=== PATIENT | male | born 1960 | race American Indian/Alaskan Native ===

== ENCOUNTER 2019-04-05 16:46 | Inpatient (IN) | payer BC ==
--- NOTE | 2019-04-05 17:08 | Event Note ---
ED Screening Note ED Screening Note: 59 yo male with hx of PTSD presnts with syncopal episode on Eliquis. Hx of CVA, HTN, DVT This initial assessment/diagnostic orders/clinical plan/treatment(s) is/are subject to change based on patients health status, clinical progression and re- assessment by fellow clinical providers in the ED. Further treatment and workup at subsequent clinical providers discretion. Patient/guardian urged not to elope from the ED as their condition may be serious if not clinically assessed and managed. Initial orders include: ekg labs
--- NOTE | 2019-04-05 18:21 | XRay Report ---
CHEST PA AND LATERAL VIEWS INDICATION: syncope. COMPARISON: None FINDINGS: Support devices: None Heart: Normal Lungs/Pleura: No acute pulmonary or pleural findings. IMPRESSION: 1. No significant abnormality. Signer Name: Angel Nava MD Signed: 04/05/2019 6:16 PM Workstation Name: [id number]
[2019-04-05 18:45] LABS: Eosinophils # (Auto) 0.1 K/mm3 (0.0-0.4); Eosinophils % (Auto) 2.6 % (0.0-4.3); Hematocrit 40.6 % (35.5-45.6); Hemoglobin 13.8 gm/dl (11.8-15.2); Lymphocytes # (Auto) 0.5 K/mm3 (1.2-5.4); Lymphocytes % (Auto) 13.4 % (13.4-35.0); Mean Corpuscular HGB Conc 34 % (32-34); Mean Corpuscular Volume 88 fl (84-94); Monocytes # (Auto) 0.3 K/mm3 (0.0-0.8); Monocytes % (Auto) 7.6 % (0.0-7.3); Platelet Count 248 K/mm3 (140-440); Red Cell Distribution Width 13.3 % (13.2-15.2)
[2019-04-05 19:03] LABS: Alanine Aminotransferase 11 units/L (7-56); Albumin 4.5 g/dL (3.9-5); BUN/Creatinine Ratio 16; Blood Urea Nitrogen 13 mg/dL (9-20); Calcium 8.9 mg/dL (8.4-10.2); Hemolysis Index 7
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
--- NOTE | 2019-04-06 00:32 | Cat Scan Report ---
CT HEAD WITHOUT CONTRAST INDICATION: syncope TECHNIQUE: Axial slices were obtained through the head. Coronal and sagittal reformatted images were obtained. COMPARISON: None available. FINDINGS: There is no intracranial hemorrhage or extra-axial fluid collection. Ventricles, basilar cisterns, an d sulci appear within normal limits for age. There is no mass lesion or midline shift. There is decre ased attenuation in the periventricular white matter most prominent in the right frontal region most characteristic of microangiopathic change. There is a lacunar infarct in the right basal ganglia. There is a focal area decreased attenuation in the anterior aspect of the right cingulate cortex Bone windows demonstrate no acute osseous abnormality. Paranasal sinuses and mastoid air cells appear clear. TECHNIQUE: All CT scans at this facility use dose modulation, iterative reconstruction, automated ex posure control, weight based dosing, when appropriate, to reduce radiation dose to as low as reasonab ly achievable. IMPRESSION: 1. No intracranial hemorrhage is seen. There is microangiopathic change in the periventricular white matter. There is a lacunar infarct in t he right basal ganglia. There is a focal area of decreased attenuation in the anterior aspect of the right cingulate cortex likely representing a lacunar infarct Signer Name: Kartik Cabral MD Signed: 04/06/2019 12:28 AM Workstation Name: [id number]
--- NOTE | 2019-04-06 00:48 | Cat Scan Report ---
CTA of the chest with 3D Reconstruction Indication: ,Chest pain, shortness of breath, syncope Technique: TECHNIQUE: Axial CT images were obtained through the chest after injection of 100 cc of Omnipaque 350 IV contrast. 3 plane MIP reconstructions were produced. All CT scans at this location are performed using CT dose reduction for ALARA by means of automated exposure control. COMPARISON: None Automatic exposure control was utilized in an attempt to reduce radiation dose. Findings: Pulmonary arteries: The main pulmonary artery and right and left pulmonary artery branches fill satis factorily with contrast. No pulmonary embolus is seen. Lungs: The lungs are clear. Mediastinum: Heart size is normal. No adenopathy is seen. Aorta: Normal in diameter. No dissection seen within limits of this exam. There is a nonobstructing 5 mm stone in the left kidney. Impression: No pulmonary embolus is seen Signer Name: Kartik Cabral MD Signed: 04/06/2019 12:44 AM Workstation Name: [id number]
[2019-04-06] MEDS ORDERED: ONDANSETRON 4 MG/2 ML INJ IV PRN (02:03)
[2019-04-06] MEDS: D5W/0.9% NACL 1,000 ML IV SCH (02:44)
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
[2019-04-06] MEDS ORDERED: REGADENOSON 0.4 MG/5 ML INJ IV ONE (09:00)
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
[2019-04-06] MEDS: APIXABAN 5 MG TAB PO SCH ×2 (12:48→22:35)
--- NOTE | 2019-04-06 14:50 | Event Note ---
Date: 04/06/19 Patient with syncope. I have seen and examined him. Cardiology recommends Neuro eval.
[2019-04-06] MEDS: LISINOPRIL 20 MG TAB PO SCH (16:07)
--- NOTE | 2019-04-06 16:08 | Progress Note ---
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 Objective - Vital Sign Vital Signs - 12hr 04/06/19 04/06/19 04/06/19 04:15 04:30 04:45 Pulse Rate 81 75 74 Respiratory 16 16 16 Rate Blood Pressure 137/84 142/89 150/85 O2 Sat by Pulse Oximetry 04/06/19 04/06/19 04/06/19 05:00 05:15 05:30 Pulse Rate 87 80 82 Respiratory 12 13 14 Rate Blood Pressure 149/93 146/97 126/79 O2 Sat by Pulse 98 Oximetry 04/06/19 04/06/19 04/06/19 05:45 06:00 06:15 Pulse Rate 87 79 76 Respiratory 10 L 15 12 Rate Blood Pressure 133/82 127/74 144/101 O2 Sat by Pulse 94 98 99 Oximetry 04/06/19 04/06/19 04/06/19 06:30 06:45 07:00 Pulse Rate 74 74 77 Respiratory 12 12 14 Rate Blood Pressure 126/77 129/82 146/99 O2 Sat by Pulse 98 99 98 Oximetry 04/06/19 04/06/19 04/06/19 07:10 07:20 07:30 Pulse Rate 80 80 71 Respiratory 14 13 13 Rate Blood Pressure 146/99 145/89 142/93 O2 Sat by Pulse 99 98 100 Oximetry 04/06/19 04/06/19 04/06/19 07:40 07:50 08:00 Pulse Rate 77 74 74 Respiratory 13 14 12 Rate Blood Pressure 142/93 131/85 131/90 O2 Sat by Pulse 99 99 99 Oximetry 04/06/19 04/06/19 04/06/19 08:10 08:20 08:30 Pulse Rate 76 88 72 Respiratory 14 16 12 Rate Blood Pressure 131/90 130/79 143/97 O2 Sat by Pulse 99 Oximetry 04/06/19 04/06/19 04/06/19 10:21 10:39 10:41 Pulse Rate Respiratory Rate Blood Pressure 160/103 155/96 145/90 O2 Sat by Pulse Oximetry 04/06/19 04/06/19 04/06/19 10:43 10:45 12:32 Pulse Rate 77 Respiratory Rate Blood Pressure 132/75 130/84 146/101 O2 Sat by Pulse 99 Oximetry 04/06/19 04/06/19 04/06/19 13:21 14:46 14:49 Pulse Rate 76 Respiratory 20 Rate Blood Pressure O2 Sat by Pulse 96 98 Oximetry - Laboratory Findings CBC and BMP: 04/05/19 18:20 04/05/19 18:20 Abnormal Lab Findings: Abnormal Labs 04/05/19 04/05/19 04/05/19 17:06 18:20 18:20 WBC 4.1 L [place] % (Auto) 7.6 H Lymph # 0.5 L Seg Neutrophils % 75.4 H Glucose 111 H POC Glucose 152 H
[2019-04-06] MEDS: ACETAMINOPHEN 325 MG TAB PO PRN ×2 (17:59→22:34)
--- NOTE | 2019-04-06 18:32 | Treadmill Report ---
THALLIUM STRESS TEST LEFT VENTRICLE: Left ventricular chamber size is within normal spread. Perfusion study demonstrates mild diaphragmatic attenuation artifact, otherwise homogeneous uptake of the tracer in all segments, no significant defects identified. Gated analysis demonstrates normal left ventricular systolic function, ejection fraction 66%. CONCLUSION: Normal myocardial perfusion study. JOB# [id number] CA/NTS
[2019-04-07] MEDS: D5W/0.9% NACL 1,000 ML IV SCH (01:17)
--- NOTE | 2019-04-07 11:08 | Progress Note ---
Assessment and Plan Assessment and plan: Syncope Unclear etiology Patient has history of head trauma when he was in For EEG in am Telemetry Cardiology consulted. He was seen by Cardiology and Neuro eval recommended patient evaluated by Neurologist Hyperglycemia Patient denies any history of diabetes Check A1c Chest pain History is atypical EKG reviewed Troponin x2 in the normal range Check echocardiogram History of pulmonary embolism Continue Eliquis Hyperlipidemia Continue statin History Interval history: Syncope Chest pain Hospitalist Physical - Physical exam Narrative exam: GEN: Not in acute distress, lying in bed HEENT: Normocephalic, atraumatic, Neck: supple, No JVD Lungs: Clear to auscultation, no wheeze, heart;S1 and S2 reg, no murmurs, rubs or gallop Abd:soft, non tender , non distended, normal bowel sounds Ext: No edema, no clubbing, no cyanosis Neuro: Awake,alert, oriented X 3, no focal neurological signs - Constitutional Vitals: Temp Pulse Resp BP Pulse Ox 100.4 F H 96 H 18 142/93 99 04/07/19 07:40 04/07/19 10:40 04/07/19 07:40 04/07/19 07:40 04/07/19 04:56 General appearance: Present: no acute distress Results - Labs CBC & Chem 7: 04/05/19 18:20 04/05/19 18:20 Labs: Laboratory Last Values WBC 4.1 K/mm3 (4.5-11.0) L 04/05/19 18:20 RBC 4.60 M/mm3 (3.65-5.03) 04/05/19 18:20 Hgb 13.8 gm/dl (11.8-15.2) 04/05/19 18:20 Hct 40.6 % (35.5-45.6) 04/05/19 18:20 MCV 88 fl (84-94) 04/05/19 18:20 MCH 30 pg (28-32) 04/05/19 18:20 MCHC 34 % (32-34) 04/05/19 18:20 RDW 13.3 % (13.2-15.2) 04/05/19 18:20 Plt Count 248 K/mm3 (140-440) 04/05/19 18:20 Lymph % (Auto) 13.4 % (13.4-35.0) 04/05/19 18:20 [place] % (Auto) 7.6 % (0.0-7.3) H 04/05/19 18:20 Eos % (Auto) 2.6 % (0.0-4.3) 04/05/19 18:20 Baso % (Auto) 1.0 % (0.0-1.8) 04/05/19 18:20 Lymph # 0.5 K/mm3 (1.2-5.4) L 04/05/19 18:20 [place] # 0.3 K/mm3 (0.0-0.8) 04/05/19 18:20 Eos # 0.1 K/mm3 (0.0-0.4) 04/05/19 18:20 Baso # 0.0 K/mm3 (0.0-0.1) 04/05/19 18:20 Seg Neutrophils % 75.4 % (40.0-70.0) H 04/05/19 18:20 Seg Neutrophils # 3.1 K/mm3 (1.8-7.7) 04/05/19 18:20 Sodium 142 mmol/L (137-145) 04/05/19 18:20 Potassium 4.0 mmol/L (3.6-5.0) 04/05/19 18:20 Chloride 102.7 mmol/L (98-107) 04/05/19 18:20 Carbon Dioxide 28 mmol/L (22-30) 04/05/19 18:20 Anion Gap 15 mmol/L 04/05/19 18:20 BUN 13 mg/dL (9-20) 04/05/19 18:20 Creatinine 0.8 mg/dL (0.8-1.5) 04/05/19 18:20 Estimated GFR > 60 ml/min 04/05/19 18:20 BUN/Creatinine Ratio 16 % 04/05/19 18:20 Glucose 111 mg/dL (75-100) H 04/05/19 18:20 POC Glucose 152 (70-105) H 04/05/19 17:06 Hemoglobin A1c 5.1 % (4-6) 04/06/19 05:00 Calcium 8.9 mg/dL (8.4-10.2) 04/05/19 18:20 Total Bilirubin 0.40 mg/dL (0.1-1.2) 04/05/19 18:20 AST 14 units/L (5-40) 04/05/19 18:20 ALT 11 units/L (7-56) 04/05/19 18:20 Alkaline Phosphatase 72 units/L (35-129) 04/05/19 18:20 Troponin T < 0.010 ng/mL (0.00-0.029) 04/06/19 01:22 NT-Pro-B Natriuret Pep 8.10 pg/mL (0-900) 04/05/19 18:20 Total Protein 6.9 g/dL (6.3-8.2) 04/05/19 18:20 Albumin 4.5 g/dL (3.9-5) 04/05/19 18:20 Albumin/Globulin Ratio 1.9 % 04/05/19 18:20 Active Medications - Current Medications Current Medications: Generic Name Dose Route Start Last Admin Trade Name Freq PRN Reason Stop Dose Admin Acetaminophen 650 mg 04/06/19 02:03 04/06/19 22:34 Tylenol PO 650 mg Q4H PRN Administration Pain MILD(1-3)/Fever >100.5/CHICAS Apixaban 5 mg 04/06/19 10:00 04/06/19 22:35 Eliquis PO 5 mg BID ALEJO Administration Protocol Atorvastatin Calcium 40 mg 04/06/19 22:00 04/06/19 22:35 Lipitor PO 40 mg QHS ALEJO Administration Dextrose/Sodium Chloride 1,000 mls @ 75 mls/hr 04/06/19 03:00 04/07/19 01:17 D5ns IV 75 mls/hr DIRECT ALEJO Administration Lisinopril 20 mg 04/06/19 16:00 04/06/19 16:07 Zestril PO 20 mg DAILY ALEJO Administration Ondansetron HCl 4 mg 04/06/19 02:03 Zofran IV Q8H PRN Nausea And Vomiting Sodium Chloride 10 ml 04/06/19 10:00 04/07/19 08:58 Sodium Chloride Flush Syringe 10 Ml IV Not Given BID ALEJO Sodium Chloride 10 ml 04/06/19 02:03 Sodium Chloride Flush Syringe 10 Ml IV PRN PRN LINE FLUSH
[2019-04-07] MEDS: APIXABAN 5 MG TAB PO SCH ×2 (11:19→21:49)
[2019-04-07] MEDS: LISINOPRIL 20 MG TAB PO SCH (11:19)
[2019-04-07] MEDS ORDERED: FLU VACC QUAD 2019-20 (3 YR UP)/PF 60 MCG/0.5 ML SYRINGE IM ONE (12:51)
--- NOTE | 2019-04-07 14:53 | Progress Note ---
Assessment and Plan - Patient Problems (1) Syncope Current Visit: Yes Status: Acute Plan to address problem: Syncope appears vasovagal by history, EKG is normal, Lexiscan thallium stress test is normal, ejection fraction is normal at 66% on gated SPECT study. No further cardiac workup is indicated. The patient's head CT scan reports evidence of lacunar infarcts, I would recommend a neurological evaluation in the setting of unexplained syncope. We will get an echocardiogram for left ventricular function assessment, and assessment of cardioembolic source. Subjective Date of service: 04/07/19 Interval history: Patient has no cardiac complaints, looks and feels well. Objective Vital Signs Temp Pulse Resp Resp BP BP Pulse Ox 04/07/19 10:40 96 H 04/07/19 07:40 100.4 F H 18 142/93 04/07/19 05:19 98 H 04/07/19 04:56 98 F 98 H 20 141/68 99 04/07/19 02:00 20 04/06/19 23:34 18 04/06/19 23:08 98.0 F 75 18 143/94 97 04/06/19 22:34 20 04/06/19 22:00 75 04/06/19 19:52 98.9 F 83 18 125/73 95 04/06/19 18:59 20 04/06/19 17:59 20 04/06/19 16:27 98.0 F 78 18 153/95 99 - Physical Examination General: No Apparent Distress HEENT: Positive: PERRL Neck: Positive: neck supple Cardiac: Positive: Reg Rate and Rhythm Lungs: Positive: Decreased Breath Sounds Neuro: Positive: Grossly Intact Abdomen: Positive: Soft Skin: Positive: Clear Extremities: Absent: edema
[2019-04-07] MEDS: ACETAMINOPHEN 325 MG TAB PO PRN (21:49)
--- NOTE | 2019-04-07 22:49 | Event Note ---
Notified by nurse that patient has a fever Check blood cultures, urinalysis, start IV Rocephin
[2019-04-07] MEDS: cefTRIAXone/NS 1 GM/50 ML 1 GM/50 ML BAG IV SCH (23:30)
[2019-04-08] MEDS: D5W/0.9% NACL 1,000 ML IV SCH (03:51)
[2019-04-08] MEDS: ACETAMINOPHEN 325 MG TAB PO PRN (06:53)
[2019-04-08 08:06] LABS: Bilirubin,Urine NEG (Negative); Blood,Urine NEG (Negative); Color,Urine Yellow (Yellow); Mucus,Urine FEW /HPF; Protein,Urine <15 mg/dL mg/dL (Negative); Urobilinogen,Urine < 2.0 mg/dL (<2.0)
[2019-04-08] MEDS: APIXABAN 5 MG TAB PO SCH ×2 (10:28→22:11)
[2019-04-08] MEDS: LISINOPRIL 20 MG TAB PO SCH (10:28)
--- NOTE | 2019-04-08 12:17 | Consultation ---
History of Present Illness - Reason for Consult Consult date: 04/08/19 Reason for consult: psychiatric assessment - Chief Complaint Chief complaint: Syncope and chest pain - History of Present Psychiatric Illness Mr. Bills is a 59-year-old -[place] male, the patient received sitting on the side of his bed he is alert oriented x3 he is dressed appropriate for the occasion, he maintains eye contact. Patient reports that he fell out of a [employer] bus and was injured. The patient reported he has a history of PTSD and was taking Latuda but stopped taking it because he is allergic to the medication the patient states that [facility]. The patient reports that he was in the [employer] and that is where he acquired his PTSD. The patient denies suicidal or homicidal ideation he states, "I am just angry that they are not treating me right here". The patient denies visual or auditory hallucinations. He reports, "I am not depressed I am just hungry". The patient does report that he is not sleeping well but maintained that his appetite is good. The patient is requesting medication for his anxiety and sleep. The patient report that at this time he is not having any other problems just anxiety and problems sleeping. The patient reports that the [facility] is handling [facility] diagnosis. PAST PSYCHIATRIC HISTORY: Diagnoses: PTSD Suicide attempts or Self-harm behavior: Denies [facility] Sub[facility] Abuse history: Denies Previous psychiatric medications tried: Latuda Outpatient treatment: Yes PAST MEDICAL HISTORY: Strokes, high blood pressure Family Psychiatric History None reported or documented SOCIAL HISTORY Marital Status: Living Arrangements: [facility] Employment Status: Disabled Access to guns/weapons: Denies Education: College History of Abuse: Denies Legal History: Denies ROS: Constitutional: Negative for weight loss ENT: Negative for stridor Respiratory: Negative for cough or hemoptysis All other systems reviewed and are negative MENTAL STATUS General Appearance and Behavior: age appropriate, good eye contact, cooperative with questioning and polite Cooperation: Cooperative Psychomotor Behavior: within normal limits Mood: "angry" Affect and affective range: Congruent with stated mood Thought Process: Fluent/Logical and Goal-directed Thought Content: Within reality Speech: Normal volume and Regular rate and rhythm Intellectual Functioning Average Suicidal Ideation: Denies SI Homicidal Ideation: Denies HI Impulse Control: intact Insight and Judgment: normal insight and judgment Memory: Normal Attention: Normal Orientation: alert and oriented RECOMMENDATIONS MEDICATIONS: Start BuSpar 7.5 mg twice daily Start trazodone 50 mg nightly Risks, benefits and alternatives of medications discussed with the patient, questions answered and consent obtained from patient. PSYCHOTHERAPY: Supportive psychotherapy provided MEDICAL: Per primary team DELIRIUM PRECAUTIONS: Please re-orient patient frequently, keep lights on during the day, and minimize benzodiazepines and opiates as these medications could worsen patient's confusion. 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: DISPOSITION: Per primary team; no indication for acute inpatient psychiatric hospitalization at this time, will follow until discharge LEGAL STATUS: FOLLOW-UP: Will follow Medications and Allergies Allergies Allergy/AdvReac Type Severity Reaction Status Date / Time lurasidone [From Latuda] AdvReac Hives Verified 04/06/19 02:12 [email or web address] [From Chantix] AdvReac Hives Verified 04/06/19 02:12 Home Medications Medication Instructions Recorded Confirmed Last Taken Type Apixaban [Eliquis] 5 mg PO QDAY 04/06/19 04/06/19 Unknown History AtorvaSTATin [Lipitor] 40 mg PO QHS 04/06/19 04/06/19 Unknown History lisinopriL [Zestril TAB] 20 mg PO DAILY 04/06/19 04/06/19 1 Day Ago History ~04/05/19 Active Meds: Active Medications Acetaminophen (Tylenol) 650 mg PO Q4H PRN PRN Reason: Pain MILD(1-3)/Fever >100.5/CHICAS Last Admin: 04/08/19 06:53 Dose: 650 mg Documented by: Apixaban (Eliquis) 5 mg PO BID [facility]; Protocol Last Admin: 04/08/19 10:28 Dose: 5 mg Documented by: Atorvastatin Calcium (Lipitor) 40 mg PO QHS [facility] Last Admin: 04/07/19 21:49 Dose: 40 mg Documented by: Dextrose/Sodium Chloride (D5ns) 1,000 mls @ 75 mls/hr IV DIRECT [facility] Last Admin: 04/08/19 03:51 Dose: 75 mls/hr Documented by: Ceftriaxone Sodium (Rocephin/Ns 1 Gm/50 Ml) 1 gm in 50 mls @ 100 mls/hr IV Q24HR@2200 [facility]; Protocol Last Admin: 04/07/19 23:30 Dose: 100 mls/hr Documented by: Lisinopril (Zestril) 20 mg PO DAILY [facility] Last Admin: 04/08/19 10:28 Dose: 20 mg Documented by: Ondansetron HCl (Zofran) 4 mg IV Q8H PRN PRN Reason: Nausea And Vomiting Sodium Chloride (Sodium Chloride Flush Syringe 10 Ml) 10 ml IV BID [facility] Last Admin: 04/08/19 10:28 Dose: 10 ml Documented by: Sodium Chloride (Sodium Chloride Flush Syringe 10 Ml) 10 ml IV PRN PRN PRN Reason: LINE FLUSH Mental Status Exam - Vital signs Last Vital Signs Temp 100.5 F H 04/08/19 03:32 Pulse 84 04/08/19 10:00 Resp 18 04/08/19 03:32 BP 145/99 04/08/19 03:32 Pulse Ox 98 04/08/19 03:32 Results Result Diagrams: 04/05/19 18:20 04/05/19 18:20 All other labs normal.
--- NOTE | 2019-04-08 13:30 | Progress Note ---
Subjective Date of service: 04/08/19 Interval history: recommend keepra 500 mg bid for seizures order entered spoke to Dr. Grayson Objective - Vital Sign Vital Signs - 12hr 04/08/19 04/08/19 03:32 10:00 Temperature 100.5 F H Pulse Rate 111 H 84 Respiratory 18 Rate Blood Pressure 145/99 O2 Sat by Pulse 98 Oximetry - Laboratory Findings CBC and BMP: 04/05/19 18:20 04/05/19 18:20 Abnormal Lab Findings: Abnormal Labs 04/05/19 04/05/19 04/05/19 17:06 18:20 18:20 WBC 4.1 L [place] % (Auto) 7.6 H Lymph # 0.5 L Seg Neutrophils % 75.4 H Glucose 111 H POC Glucose 152 H
--- NOTE | 2019-04-08 15:57 | Consultation ---
History of Present Illness - Reason for Consult Consult date: 04/08/19 - History of Present Illness 59-year-old male past medical history DVT, PE [facility] due to syncope and chest pain. Noted for admission he was in his usual state of health, however he began to feel dizzy and drowsy. While on the bus had a syncopal episode, and came to without medical intervention.. Following this he began having substernal chest pain and shortness of breath, with nausea and vomiting. He also notes diaphoresis at that time. After being admitted he developed high fevers to 103.4. He has a mild leukopenia with a white count of 4. he notes a headache and neck pain, though denies any decreased ROM of the neck. He is currently receiving ceftriaxone. Blood cultures are currently pending Imaging personally reviewed: Chest CTA: No pulmonary embolism, lungs clear. Review of Systems: Bold if positive, otherwise negative General: fevers, chills, rigors HEENT: visual disturbance, diplopia, eye pain Respiratory: cough, sputum, hemoptysis, shortness of breath Cardiovascular: chest pain, syncope Gastrointestinal: nausea, vomiting, diarrhea, abdominal pain Genitourinary: dysuria, hematuria, flank pain Musculoskeletal: neck pain, back pain, joint pain, edema Neurologic: headaches, seizures Hematologic: easy bruising or bleeding Endocrine: night sweats, acute weight loss Skin: rash, jaundice, redness Psychiatric: suicidal, homicidal ideation Past History Past Medical History: DVT, pulmonary embolism, other (PTSD) Past Surgical History: No surgical history Social history: no significant social history Family history: no significant family history Medications and Allergies Allergies Allergy/AdvReac Type Severity Reaction Status Date / Time lurasidone [From Latuda] AdvReac Hives Verified 04/06/19 02:12 [email or web address] [From Chantix] AdvReac Hives Verified 04/06/19 02:12 Home Medications Medication Instructions Recorded Confirmed Last Taken Type Apixaban [Eliquis] 5 mg PO QDAY 04/06/19 04/06/19 Unknown History AtorvaSTATin [Lipitor] 40 mg PO QHS 04/06/19 04/06/19 Unknown History lisinopriL [Zestril TAB] 20 mg PO DAILY 04/06/19 04/06/19 1 Day Ago History ~04/05/19 Active Meds: Active Medications Acetaminophen (Tylenol) 650 mg PO Q4H PRN PRN Reason: Pain MILD(1-3)/Fever >100.5/CHICAS Last Admin: 04/08/19 06:53 Dose: 650 mg Documented by: Apixaban (Eliquis) 5 mg PO BID [facility]; Protocol Last Admin: 04/08/19 10:28 Dose: 5 mg Documented by: Atorvastatin Calcium (Lipitor) 40 mg PO QHS [facility] Last Admin: 04/07/19 21:49 Dose: 40 mg Documented by: Buspirone HCl (Buspar) 7.5 mg PO BID [facility] Dextrose/Sodium Chloride (D5ns) 1,000 mls @ 75 mls/hr IV DIRECT [facility] Last Admin: 04/08/19 03:51 Dose: 75 mls/hr Documented by: Ceftriaxone Sodium (Rocephin/Ns 1 Gm/50 Ml) 1 gm in 50 mls @ 100 mls/hr IV Q24HR@2200 [facility]; Protocol Last Admin: 04/07/19 23:30 Dose: 100 mls/hr Documented by: Levetiracetam (Keppra) 500 mg PO BID [facility] Lisinopril (Zestril) 20 mg PO DAILY [facility] Last Admin: 04/08/19 10:28 Dose: 20 mg Documented by: Ondansetron HCl (Zofran) 4 mg IV Q8H PRN PRN Reason: Nausea And Vomiting Sodium Chloride (Sodium Chloride Flush Syringe 10 Ml) 10 ml IV BID [facility] Last Admin: 04/08/19 10:28 Dose: 10 ml Documented by: Sodium Chloride (Sodium Chloride Flush Syringe 10 Ml) 10 ml IV PRN PRN PRN Reason: LINE FLUSH Trazodone HCl (Desyrel) 50 mg PO QHS [facility] Physical Examination - Physical Exam Narrative exam: Physical Exam: Constitutional: Alert, cooperative. No acute distress Head, Ears, Nose: Normocephalic, atraumatic. External ears, nose normal Eyes: Conjunctivae/corneas clear. No icterus. No ptosis. Neck: Supple, no meningeal signs Oral: dentition fair, no thrush Cardiovascular: S1, S2 normal. Respiratory: Good air entry, clear to auscultation bilaterally GI: Soft, non-tender; bowel sounds normal. No peritoneal signs. Musculoskeletal: No pedal edema, no cyanosis. Skin: No rash or abscess Hem/Lymphatic: No palpable cervical or supraclavicular nodes. No lymphangitis Psych: Mood ok. Affect normal Neurological: Awake, alert, oriented. No gross abnormality - Constitutional Vitals: Vital Signs Temp Pulse Resp BP Pulse Ox 100.5 F H 84 18 145/99 98 04/08/19 03:32 04/08/19 10:00 04/08/19 03:32 04/08/19 03:32 04/08/19 03:32 Temperature -Last 24 Hours Temperature 100.5 F Temperature 100.9 F Temperature 103.4 F Results - Labs CBC & Chem 7: 04/05/19 18:20 04/05/19 18:20 Assessment and Plan Cultures: 04/07/2019 blood cultures (a.m.): Pending 04/07/2019 blood cultures (p.m.): Pending A&P: 59-year-old man past medical history DVT, PE admitted with chest pain and syncope. Found to have high fevers on admission. #Fevers: Unclear etiology as yet. Recommend evaluating for influenza. Would consider obtaining LP to rule out a viral meningitis picture. Can continue ceftriaxone for now, though don't expect a long course. Recommendations: -Ordered rapid flu and flu PCR. -Start empiric Tamiflu 75 mg every 12 hours, stop if flu negative. - ordered procalcitonin for the AM. Thank you for the consult, will continue to follow MD Kira [facility] M: [phone] O: [phone] F: [phone]
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
--- NOTE | 2019-04-08 17:17 | Progress Note ---
Assessment and Plan - Patient Problems (1) Syncope Current Visit: Yes Status: Acute Plan to address problem: Syncope appears vasovagal by history, EKG is normal, Lexiscan thallium stress test is normal, ejection fraction is normal at 66% on gated SPECT study. No further cardiac workup is indicated. The patient's head CT scan reports evidence of lacunar infarcts, I would recommend a neurological evaluation in the setting of unexplained syncope. Patient refused echocardiogram. Cardiac status is stable and asymptomatic, we will sign off on formal on a when necessary basis. Subjective Date of service: 04/08/19 Interval history: Patient refuses further cardiac testing, including an echocardiogram that was recommended for cardioembolic source. Objective Vital Signs Temp Pulse Resp BP Pulse Ox 04/08/19 10:00 84 04/08/19 03:32 100.5 F H 111 H 18 145/99 98 04/08/19 01:04 100.9 F H 84 18 108/59 95 04/07/19 22:00 87 04/07/19 19:24 103.4 F H 83 18 133/77 97 - Physical Examination General: No Apparent Distress HEENT: Positive: PERRL Neck: Positive: neck supple Cardiac: Positive: Reg Rate and Rhythm Lungs: Positive: Decreased Breath Sounds Neuro: Positive: Grossly Intact Abdomen: Positive: Soft Skin: Positive: Clear Extremities: Absent: edema
[2019-04-08] MEDS: busPIRone 5 MG TAB PO SCH (22:10)
[2019-04-08] MEDS: cefTRIAXone/NS 1 GM/50 ML 1 GM/50 ML BAG IV SCH (22:10)
[2019-04-08] MEDS: traZODone 50 MG TAB PO SCH (22:10)
[2019-04-08] MEDS: OSELTAMIVIR 75 MG CAP PO SCH (22:11)
[2019-04-08] MEDS: levETIRAcetam 500 MG TAB PO SCH (22:11)
[2019-04-09 05:25] LABS: Hematocrit 38.3 % (35.5-45.6); Hemoglobin 13.3 gm/dl (11.8-15.2); Mean Corpuscular HGB Conc 35 % (32-34); Mean Corpuscular Volume 87 fl (84-94); Platelet Count 202 K/mm3 (140-440); Red Blood Count 4.42 M/mm3 (3.65-5.03); Red Cell Distribution Width 13.2 % (13.2-15.2)
[2019-04-09 05:44] LABS: BUN/Creatinine Ratio 13; Blood Urea Nitrogen 10 mg/dL (9-20); Calcium 8.3 mg/dL (8.4-10.2); Hemolysis Index 2
[2019-04-09] MEDS: D5W/0.9% NACL 1,000 ML IV SCH ×2 (10:07→21:39)
[2019-04-09] MEDS: OSELTAMIVIR 75 MG CAP PO SCH ×2 (10:07→21:33)
[2019-04-09] MEDS: levETIRAcetam 500 MG TAB PO SCH ×2 (10:08→21:33)
[2019-04-09] MEDS: APIXABAN 5 MG TAB PO SCH ×2 (10:08→21:33)
[2019-04-09] MEDS: busPIRone 5 MG TAB PO SCH ×2 (10:09→21:33)
[2019-04-09] MEDS: LISINOPRIL 20 MG TAB PO SCH (10:09)
[2019-04-09 10:47] LABS: Color,Urine Yellow (Yellow)
[2019-04-09 10:48] LABS: Bilirubin,Urine Negative (Negative); Blood,Urine Negative (Negative); Protein,Urine <15 mg/dL mg/dL (Negative)
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
[2019-04-09] MEDS: ACETAMINOPHEN 325 MG TAB PO PRN (14:29)
--- NOTE | 2019-04-09 16:55 | Progress Note ---
Assessment and Plan Cultures: 04/07/2019 blood cultures (a.m.): Pending 04/07/2019 blood cultures (p.m.): Pending Flu negative 217 urine cultures: Pending A&P: 59-year-old man past medical history DVT, PE admitted with chest pain and syncope. Found to have high fevers on admission. #Fevers: Unclear etiology as yet. Given negative procalcitonin, believe it is most likely due to a viral upper respiratory tract infection Recommendations: Stop Tamiflu Stop ceftriaxone No need for further investigation at this time Thank you for the consult, will sign off, please call with questions Carmen Dupree MD [facility] ([facility]) M: [phone] O: [phone] F: [phone] Subjective Date of service: 04/02/19 Interval history: Afebrile now, no new complaints. Headache improved. Objective - Exam Narrative Exam: Physical Exam: Constitutional: Alert, cooperative. No acute distress Head, Ears, Nose: Normocephalic, atraumatic. External ears, nose normal Neck: Supple, no meningeal signs Oral: dentition fair, no thrush Cardiovascular: S1, S2 normal. Respiratory: Good air entry, clear to auscultation bilaterally GI: Soft, non-tender; bowel sounds normal. No peritoneal signs. Musculoskeletal: No pedal edema, no cyanosis. Skin: No rash or abscess Hem/Lymphatic: No palpable cervical or supraclavicular nodes. No lymphangitis Psych: Mood ok. Affect normal Neurological: Awake, alert, oriented. No gross abnormality - Constitutional Vitals: Vital Signs Temp Pulse Resp BP Pulse Ox 98.4 F 108 H 20 138/89 98 04/09/19 08:20 04/09/19 11:00 04/09/19 14:29 04/09/19 10:09 04/09/19 11:00 Temperature -Last 24 Hours Temperature 98.4 F Temperature 98.0 F Temperature 98.3 F Temperature 98.3 F Temperature 97.9 F - Labs CBC & Chem 7: 04/09/19 04:28 04/09/19 04:28 Labs: Abnormal lab results 04/09/19 04/09/19 Range/Units 04:28 04:28 WBC 3.5 L (4.5-11.0) K/mm3 MCHC 35 H (32-34) % Calcium 8.3 L (8.4-10.2) mg/dL
--- NOTE | 2019-04-09 18:33 | Progress Note ---
Assessment and Plan - Patient Problems (1) Seizure Current Visit: Yes Status: Acute Plan to address problem: Patient with active seizure disorder. Plan will be to discontinue with Keppra follow-up with outpatient neurology. (2) Chest pain Current Visit: Yes Status: Acute Plan to address problem: Patient remains chest pain-free. Patient had negative cardiac isoenzymes. Patient refused echocardiogram to rule out embolic source. Does not appear to be cardiac origin at all with his description. (3) Hyperglycemia Current Visit: Yes Status: Acute Plan to address problem: Patient with history of diabetes Accu-Chek has remained optimally controlled. Will obtain A1c. A1c 5.1. Nondiabetic range. We will continue to follow. (4) Syncope Current Visit: Yes Status: Acute Plan to address problem: Patient with near syncope no true syncope most likely secondary to seizure disorder treat underlying etiology. (5) History of pulmonary embolism Current Visit: Yes Status: Chronic Plan to address problem: Restart patient on Eliquis tolerated well. (6) Hyperlipidemia Current Visit: Yes Status: Chronic Qualifiers: Hyperlipidemia type: mixed hyperlipidemia Qualified Code(s): E78.2 - Mixed hyperlipidemia Plan to address problem: We will continue statin goal LDL less than 70. History Interval history: Patient this a.m. chooses concerns over recent CT scan of head and follow-up by staff neurologist. Patient clearly has some underlying psychiatric etiology. Patient however now is very understanding. Attempts to make sense of his disease state. Patient states he has not had any recent seizure now. Feels improved. Patient would like physical therapy. That is 1 of his main issues at this time. No further episodes of syncope. Hospitalist Physical - Constitutional Vitals: Temp Pulse Resp BP Pulse Ox 98.4 F 108 H 20 138/89 98 04/09/19 08:20 04/09/19 11:00 04/09/19 14:29 04/09/19 10:09 04/09/19 11:00 General appearance: Present: no acute distress - EENT Eyes: Present: PERRL, EOM intact ENT: hearing intact, clear oral mucosa, dentition normal - Neck Neck: Present: supple, normal ROM - Respiratory Respiratory: bilateral: CTA - Cardiovascular Rhythm: regular - Extremities Extremities: no ischemia, pulses intact, pulses symmetrical, No edema, normal temperature, normal color Peripheral Pulses: within normal limits - Abdominal General gastrointestinal: soft, non-tender, non-distended, normal bowel sounds - Integumentary Integumentary: Present: clear, warm, dry - Psychiatric Psychiatric: appropriate mood/affect, intact judgment & insight (Poor insight into disease.), other (Poor judgment.) - Neurologic Neurologic: CNII-XII intact Results - Labs CBC & Chem 7: 04/09/19 04:28 04/09/19 04:28 Labs: Laboratory Last Values WBC 3.5 K/mm3 (4.5-11.0) L 04/09/19 04:28 RBC 4.42 M/mm3 (3.65-5.03) 04/09/19 04:28 Hgb 13.3 gm/dl (11.8-15.2) 04/09/19 04:28 Hct 38.3 % (35.5-45.6) 04/09/19 04:28 MCV 87 fl (84-94) 04/09/19 04:28 MCH 30 pg (28-32) 04/09/19 04:28 MCHC 35 % (32-34) H 04/09/19 04:28 RDW 13.2 % (13.2-15.2) 04/09/19 04:28 Plt Count 202 K/mm3 (140-440) 04/09/19 04:28 Lymph % (Auto) 13.4 % (13.4-35.0) 04/05/19 18:20 [place] % (Auto) 7.6 % (0.0-7.3) H 04/05/19 18:20 Eos % (Auto) 2.6 % (0.0-4.3) 04/05/19 18:20 Baso % (Auto) 1.0 % (0.0-1.8) 04/05/19 18:20 Lymph # 0.5 K/mm3 (1.2-5.4) L 04/05/19 18:20 [place] # 0.3 K/mm3 (0.0-0.8) 04/05/19 18:20 Eos # 0.1 K/mm3 (0.0-0.4) 04/05/19 18:20 Baso # 0.0 K/mm3 (0.0-0.1) 04/05/19 18:20 Seg Neutrophils % 75.4 % (40.0-70.0) H 04/05/19 18:20 Seg Neutrophils # 3.1 K/mm3 (1.8-7.7) 04/05/19 18:20 Sodium 143 mmol/L (137-145) 04/09/19 04:28 Potassium 3.9 mmol/L (3.6-5.0) 04/09/19 04:28 Chloride 104.8 mmol/L (98-107) 04/09/19 04:28 Carbon Dioxide 23 mmol/L (22-30) 04/09/19 04:28 Anion Gap 19 mmol/L 04/09/19 04:28 BUN 10 mg/dL (9-20) 04/09/19 04:28 Creatinine 0.8 mg/dL (0.8-1.5) 04/09/19 04:28 Estimated GFR > 60 ml/min 04/09/19 04:28 BUN/Creatinine Ratio 13 % 04/09/19 04:28 Glucose 97 mg/dL (75-100) 04/09/19 04:28 POC Glucose 152 (70-105) H 04/05/19 17:06 Hemoglobin A1c 5.1 % (4-6) 04/06/19 05:00 Calcium 8.3 mg/dL (8.4-10.2) L 04/09/19 04:28 Total Bilirubin 0.40 mg/dL (0.1-1.2) 04/05/19 18:20 AST 14 units/L (5-40) 04/05/19 18:20 ALT 11 units/L (7-56) 04/05/19 18:20 Alkaline Phosphatase 72 units/L (35-129) 04/05/19 18:20 Troponin T < 0.010 ng/mL (0.00-0.029) 04/06/19 01:22 NT-Pro-B Natriuret Pep 8.10 pg/mL (0-900) 04/05/19 18:20 Total Protein 6.9 g/dL (6.3-8.2) 04/05/19 18:20 Albumin 4.5 g/dL (3.9-5) 04/05/19 18:20 Albumin/Globulin Ratio 1.9 % 04/05/19 18:20 Procalcitonin < 0.05 ng/mL (<0.15) 04/09/19 04:28 Urine Color Yellow (Yellow) 04/09/19 09:57 Urine Turbidity Clear (Clear) 04/09/19 09:57 Urine pH 6.0 (5.0-7.0) 04/09/19 09:57 Ur Specific [place] 1.010 (1.003-1.030) 04/09/19 09:57 Urine Protein <15 mg/dl mg/dL (Negative) 04/09/19 09:57 Urine Glucose (UA) Negative mg/dL (Negative) 04/09/19 09:57 Urine Ketones Negative mg/dL (Negative) 04/09/19 09:57 Urine Blood Negative (Negative) 04/09/19 09:57 Urine Nitrite Negative (Negative) 04/09/19 09:57 Ur Reducing Substances Not Reportable 04/09/19 09:57 Urine Bilirubin Negative (Negative) 04/09/19 09:57 Urine Ictotest Not Reportable 04/09/19 09:57 Urine Urobilinogen 2.0 mg/dL (<2.0) 04/09/19 09:57 Ur Leukocyte Esterase Negative (Negative) 04/09/19 09:57 Urine WBC (Auto) 1.0 /HPF (0.0-6.0) 04/09/19 09:57 Urine RBC (Auto) 1.0 /HPF (0.0-6.0) 04/09/19 09:57 Urine Mucus Few /HPF 04/08/19 07:00 Influenza A (Rapid) Negative (Negative) 04/09/19 Unknown Influenza A (RT-PCR) Negative (Negative) 04/09/19 Unknown Influenza B (Rapid) Negative (Negative) 04/09/19 Unknown Influenza B (RT-PCR) Negative (Negative) 04/09/19 Unknown Active Medications - Current Medications Current Medications: Generic Name Dose Route Start Last Admin Trade Name Freq PRN Reason Stop Dose Admin Acetaminophen 650 mg 04/06/19 02:03 04/09/19 14:29 Tylenol PO 650 mg Q4H PRN Administration Pain MILD(1-3)/Fever >100.5/CHICAS Apixaban 5 mg 04/06/19 10:00 04/09/19 10:08 Eliquis PO 5 mg BID ALEJO Administration Protocol Atorvastatin Calcium 40 mg 04/06/19 22:00 04/08/19 22:11 Lipitor PO 40 mg QHS ALEJO Administration Buspirone HCl 7.5 mg 04/08/19 22:00 04/09/19 10:09 Buspar PO 7.5 mg BID ALEJO Administration Dextrose/Sodium Chloride 1,000 mls @ 75 mls/hr 04/06/19 03:00 04/09/19 10:07 D5ns IV 75 mls/hr DIRECT ALEJO Administration Ceftriaxone Sodium 1 gm in 50 mls @ 100 mls/hr 04/07/19 22:44 04/08/19 22:10 Rocephin/Ns 1 Gm/50 Ml IV 100 mls/hr Q24HR@2200 ALEJO Administration Protocol Levetiracetam 500 mg 04/08/19 22:00 04/09/19 10:08 Keppra PO 500 mg BID ALEJO Administration Lisinopril 20 mg 04/06/19 16:00 04/09/19 10:09 Zestril PO 20 mg DAILY ALEJO Administration Ondansetron HCl 4 mg 04/06/19 02:03 Zofran IV Q8H PRN Nausea And Vomiting Oseltamivir Phosphate 75 mg 04/08/19 22:00 04/09/19 10:07 Tamiflu PO 04/13/19 10:01 75 mg BID ALEJO Administration Sodium Chloride 10 ml 04/06/19 10:00 04/09/19 10:10 Sodium Chloride Flush Syringe 10 Ml IV 10 ml BID ALEJO Administration Sodium Chloride 10 ml 04/06/19 02:03 Sodium Chloride Flush Syringe 10 Ml IV PRN PRN LINE FLUSH Trazodone HCl 50 mg 04/08/19 22:00 04/08/19 22:10 Desyrel PO 50 mg QHS ALEJO Administration
[2019-04-09 20:50] VITALS: BP 137/86
[2019-04-09] MEDS: cefTRIAXone/NS 1 GM/50 ML 1 GM/50 ML BAG IV SCH (21:32)
[2019-04-10] MEDS: traZODone 50 MG TAB PO SCH (05:54)
--- NOTE | 2019-04-10 10:01 | Discharge Summary ---
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 Had active seizures CT scan showed old lacunar infarct periventricular white matter disease. Patient placed on Keppra no further seizure episodes. Patient also had questionable non-cardiac chest pain had cardiac work-up including negative stress test echocardiogram ejection fraction 66%. CT scan chest negative for PE chest x-ray unremarkable cardiac isoenzymes unremarkable. Patient also showed evidence of psychiatric disorder mood disorder. Was found to have history of PTSD. Treated with bus [place] currently. Patient scheduled for outpatient treatment at the [facility] for further work-up and treatment of PTSD. Patient hypertension continue to have optimal control. Patient refused invasive work-up for cardiac work-up to rule out evidence of embolic disease. Disposition: DC TO HOME OR SELFCARE - Discharge Diagnoses (1) Seizure Status: Acute Comment: Patient with seizure. May be likely secondary to old CVA. No acute events. Patient stable for discharge and will discharge with Keppra. (2) Chest pain Status: Acute Comment: Patient had noncardiac chest pain. CT scan no PE chest x-ray unremarkable exercise stress test unremarkable. Patient refused [place] for rule out embolic source. Negative cardiac isoenzymes. No EKG changes. (3) Hyperglycemia Status: Acute Comment: No evidence of diabetes. Obtain Accu-Chek. (4) Syncope Status: Acute Comment: Near syncope most likely secondary to seizure disorder we will treat seizure disorder patient has follow-up with neurologist as outpatient. (5) History of pulmonary embolism Status: Chronic Comment: Past history of pulmonary embolism CT scan is negative for PE at this time. (6) Hyperlipidemia Status: Chronic Qualifiers: Hyperlipidemia type: mixed hyperlipidemia Qualified Code(s): E78.2 - Mixed hyperlipidemia (7) Posttraumatic stress disorder Status: Acute Comment: Patient gives history of posttraumatic stress [facility] Was [facility] Latuda. Has follow-up for additional med. Patient denies depression. Had psychiatric consult here unremarkable. Core Measure Documentation - Palliative Care Palliative Care/ Comfort Measures: Not Applicable - Core Measures Any of the following diagnoses?: none Exam - Constitutional Vitals: Temp Pulse Resp BP Pulse Ox 98.3 F 108 H 20 137/86 98 04/09/19 20:34 04/09/19 23:00 04/09/19 23:00 04/09/19 20:34 04/09/19 23:00 General appearance: Present: no acute distress, well-nourished - EENT Eyes: Present: PERRL ENT: hearing intact, clear oral mucosa - Neck Neck: Present: supple, normal ROM - Respiratory Respiratory effort: normal Respiratory: bilateral: CTA - Cardiovascular Heart Sounds: Present: S1 & S2. Absent: rub, click - Extremities Extremities: pulses symmetrical, No edema Peripheral Pulses: within normal limits - Abdominal General gastrointestinal: Present: soft, non-tender, non-distended, normal bowel sounds Male genitourinary: Present: normal - Integumentary Integumentary: Present: clear, warm, dry - Musculoskeletal Musculoskeletal: gait normal, strength equal bilaterally - Psychiatric Psychiatric: appropriate mood/affect, intact judgment & insight - Neurologic Neurologic: CNII-XII intact, moves all extremities Plan Activity: no driving until cleared by PCP Weight Bearing Status: Full Weight Bearing Diet: low fat Special Instructions: physical therapy Follow up with: PRIMARY CARE, [Primary Care Provider] - 7 Days Prescriptions: levETIRAcetam [Keppra TAB] 500 mg PO BID #60 tablet
[2019-04-10] MEDS: busPIRone 5 MG TAB PO SCH (10:05)
[2019-04-10] MEDS: LISINOPRIL 20 MG TAB PO SCH (10:06)
[2019-04-10] MEDS: levETIRAcetam 500 MG TAB PO SCH (10:06)
[2019-04-10] MEDS: OSELTAMIVIR 75 MG CAP PO SCH (10:08)
[2019-04-10] MEDS: APIXABAN 5 MG TAB PO SCH (10:09)
== END 2019-04-10 15:49 | disposition home or self-care (01) | DRG 101 ==
LOC: ED 16:46 → 4A 04-06 03:53 → INTOOBSV 04-06 03:53 → 4A 04-06 07:56 → OBSVTOIN 04-08 17:50 → INTOOBSV 04-08 17:52
PROVIDERS: ADMIT Internal Medicine; ATTEND Internal Medicine
DX: G40.909 Epilepsy, unspecified, not intractable, without status epilepticus (principal); R73.9 Hyperglycemia, unspecified; K21.9 Gastro-esophageal reflux disease without esophagitis; E78.2 Mixed hyperlipidemia; Z86.718 Personal history of other venous thrombosis and embolism; Z86.711 Personal history of pulmonary embolism; Z79.01 Long term (current) use of anticoagulants; Z88.8 Allergy status to other drugs, medicaments and biological substances; Z87.891 Personal history of nicotine dependence; Z86.73 Personal history of transient ischemic attack (TIA), and cerebral infarction without residual deficits
CPT/HCPCS: 36415; 70450; 71046; 71275; 78452; 80048; 80053; 81001; 82962; 83036; 83880; 84145; 84484; 85025; 85027; 87040; 87086; 87400; 90686; 93005; 93010; 93017; 95819; G0378; 87502; A9270-GY; A9502; J0696; J2785; J7042; Q9967